=== PATIENT | female | born 1970 | race Caucasian/White ===

== ENCOUNTER → 2020-05-22 | Day surgery (SDC) | payer OTHER ==
[~2020-05-22] MED LIST: COLESTID 1GM TAB1 GM PO; COLESTIPOL HCL1 GM PO; EFFEXOR XR37.5 MG PO; LISINOPRIL20 MG PO; NORCO 5-325 TA1 EACH PO; PRILOSEC20 MG PO
[2020-05-22 07:32] LABS: HCT 40.5 % (37.0-47.0); HGB 13.7 g/dl (12.5-16.0); MCH 29.5 pg (25.0-31.0); MCHC 33.8 g/dL (32.0-36.0); MCV 87.3 fL (78.0-100.0); MPV 10.1 fL (6.0-9.5); RBC 4.64 M/uL (4.20-5.40); RDW 12.2 % (11.5-14.0); WBC 7.9 K/uL (4.0-10.5)
[2020-05-22 08:08] LABS: BILIRUBIN - TOTAL 0.5 mg/dL (0.2-1.0); BUN/CREAT RATIO (CALC) 20.6 RATIO; CREATININE 0.63 mg/dL (0.51-0.95); GLOBULIN (CALCULATION) 3.7 g/dL; POTASSIUM 3.1 mmol/L (3.5-5.1); TOTAL PROTEIN 7.7 g/dL (6.4-8.2)
== END | disposition home or self-care (01) ==
LOC: FAS 06:56
PROVIDERS: Surgery
DX: Z12.11 Encounter for screening for malignant neoplasm of colon (principal); I10 Essential (primary) hypertension; Z20.822 Contact with and (suspected) exposure to COVID-19
CPT/HCPCS: 36415; 80053; J2250; J2704; J7120